=== PATIENT | female | born 1950 | race Caucasian/White ===

== ENCOUNTER 2020-07-12 17:23 | Observation (INO) ==
[2020-07-12 18:51] LABS: ABS Basophils 0.1 10^3/ul (0-0.2); ABS Eosinophils 0.2 10^3/ul (0-0.6); ABS Lymphocytes 1.5 10^3/ul (1.0-4.8); ABS Monocytes 0.7 10^3/ul (0-0.8); ABS Neutrophils 6.3 10^3/ul (1.5-7.7); Eosinophil % 2.4 %; Hematocrit 47 % (35-47); Hemoglobin 16.4 g/dL (12.0-16.0); Lymphocyte % 17.5 %; Mean Corpuscular HGB Conc 35 g/dL (31-36); Mean Corpuscular Hemoglobin 31 pg (27-31); Mean Corpuscular Volume 87 fL (80-97); Nucleated Red Blood Cells % 0.1; Platelet Count 231 10^3/uL (150-450); Red Blood Count 5.35 10^6 /uL (3.70-4.87); Red Cell Distribution Width 13 % (10-15); White Blood Count 8.8 10^3/uL (3.5-10.8)
[2020-07-12 19:07] LABS: Albumin 4.4 g/dL (3.2-5.2); Albumin/Globulin Ratio 1.6 (1-3); Calcium 9.5 mg/dL (8.6-10.3); EGFR African American 92.4 (>60); EGFR Non-African American 76.4 (>60); Globulin 2.7 g/dL (2-4); Magnesium 2.3 mg/dL (1.9-2.7); Potassium 3.8 mmol/L (3.5-5.0); Total Bilirubin 0.3 mg/dL (0.2-1.0); Total Protein 7.1 g/dL (6.4-8.9)
[2020-07-12 19:10] LABS: Troponin I 0.01 ng/mL (<0.03)
[2020-07-12 19:44] LABS: TSH Ultra Thyroid Stim Horm 0.73 mcIU/mL (0.34-5.60)
[2020-07-12] MEDS ORDERED: Enoxaparin 60 MG/0.6 ML SYR SUBCUT ONE (21:54)
[2020-07-13] MEDS ORDERED: Alendronate 70 mg TAB (NF) PO SCH (04:00)
[2020-07-13 06:46] LABS: HDL Cholesterol 57.7 mg/dL; Troponin I 0.02 ng/mL (<0.03)
[2020-07-13 07:44] VITALS: BP 143/72
[2020-07-13] MEDS ORDERED: Potassium Chlor 20 meq TAB.ER PO ONE (10:55)
== END 2020-07-13 11:43 | disposition home or self-care (01) ==
LOC: MEDTELE 17:23 → ED 17:23 → MEDTELE 07-13 05:15
PROVIDERS: ADMIT Internal Medicine; ATTEND Student in an Organized Health Care Education/Training Program